=== PATIENT | female | born 1940 | race Caucasian/White ===

== ENCOUNTER 2018-03-19 09:34 | Emergency (ER) | payer MEDICARE, OTHER ==
[2018-03-19 10:11] VITALS: BP 98/67
--- NOTE | 2018-03-19 10:14 | UC ---
Respiratory Complaint HPI - HPI Summary HPI Summary: Patient is a 77 year old woman , who present today to the urgent care with coughing, chest congestion for past 1 week. Her has similar symptoms for past 2 weeks. She reports productive cough and noticed one episode of a streaky blood on the sputum. Denies any fever, chills, chest pain or shortness of breath . Denies any abdominal pain , nausea or vomiting , diarrhea or constipation. Patient tried over the counter Robitussin DM without much relief. - History of Current Complaint Chief Complaint: UCRespiratory Stated Complaint: CONGESTION COUGH Time Seen by Provider: 03/19/18 10:00 Hx Obtained From: Patient Pain Intensity: 0 - Allergies/Home Medications Allergies/Adverse Reactions: Allergies Allergy/AdvReac Type Severity Reaction Status Date / Time ibuprofen Allergy Rash Verified 03/19/18 10:12 Penicillins Allergy Rash Verified 03/19/18 10:12 Home Medications: Home Medications L.acidoph,Paracasei, B.lactis [Probiotic] 1 each PO DAILY 03/19/18 [History Confirmed 03/19/18] Pantoprazole TAB (NF) [Protonix TAB (NF)] 20 mg PO DAILY 03/19/18 [History Confirmed 03/19/18] PMH/Surg Hx/FS Hx/Imm Hx - Additional Past Medical History Additional PMH: Hypertension Asthma GERD Hyperlipidemia Anxiety and depression Previously Healthy: Yes - Surgical History Surgical History: Yes Surgery Procedure, Year, and Place: bone spurs. kidney stones. leg vein stripped. tonsillectomy - Social History Alcohol Use: None Substance Use Type: None Smoking Status (MU): Never Smoked Tobacco Review of Systems All Other Systems Reviewed And Are Negative: Yes Constitutional: Positive: Negative Skin: Positive: Negative Eyes: Positive: Negative ENT: Positive: Other - Chest congestion Respiratory: Positive: Cough - Productive Cardiovascular: Positive: Negative Gastrointestinal: Positive: Negative Genitourinary: Positive: Negative Motor: Positive: Negative Neurovascular: Positive: Negative Musculoskeletal: Positive: Negative Neurological: Positive: Negative Psychological: Positive: Negative Is Patient Immunocompromised?: No Physical Exam - Summary Physical Exam Summary: Physical Exam: Const: Appears well. No signs of apparent distress present. Alert and oriented x 3. Musculo: Walks with a normal gait. Head/Face: Atraumatic, normocephalic on inspection. Eyes: EOMI and PERRLA in both eyes. Conjunctivae clear. No discharge noted ENT: Hearing normal, TM normal appearing bilaterally seen partially as she has cerumen bilaterally No pharyngeal erythema or exudates No lymphadenopathy Respiratory: Respirations are unlabored. Decreased air entry is noted in right middle and upper lobe. no wheezing , rhonchi or rales noted . CVS: Regular rate and Rhythm, S1S2 normal , no murmurs identified. Extremities: Peripheral circulation is grossly normal. Pulses 2+ Abdomen : Soft non tender , nondistended , Bowel sounds present . No guarding , rebound tenderness or rigidity noted. Skin: No lesions or rash located on the upper extremities or on the lower extremities. Neuro: Cranial nerves II to XII intact, motor and sensory intact. DTR Intact bilaterally. Mood is normal. Affect is normal. Triage Information Reviewed: Yes Vital Signs: Initial Vital Signs Temp 98 F 03/19/18 10:07 Pulse 73 03/19/18 10:07 Resp 18 03/19/18 10:07 BP 98/67 03/19/18 10:07 Pulse Ox 97 03/19/18 10:07 Vital Signs Reviewed: Yes Diagnostic Evaluation - Laboratory O2 Sat by Pulse Oximetry: 97 - Radiology Radiology Interpretation Completed By: Radiologist - Chest Xray: Stigmata of obstructive lung disease. No acute pulmonary or cardiac process evident. Respiratory Course/Dx - Course Course Of Treatment: During the visit today, we obtained chest x-ray . Chest x-ray: Elevated lung volumes and mild prominence of interstitial markings without change.No focal pulmonary lesion, compelling alveolar consolidation, pleural effusion, pneumothorax. The heart, pulmonary vasculature, and mediastinal contours are unremarkable. Diffuse thoracic degenerative spondylosis. IMPRESSION:#. Stigmata of obstructive lung disease. No acute pulmonary or cardiac process evident. We discussed the findings and further plan. I will prescribe the medication to the pharmacy . Patient expressed understanding . - Differential Dx/Diagnosis Provider Diagnosis: Atypical pneumonia Discharge - Sign-Out/Discharge Documenting (check all that apply): Patient Departure All imaging exams completed and their final reports reviewed: Yes - Discharge Plan Condition: Stable Disposition: HOME Prescriptions: Azithromyxin SUGAR (NF) [Z-Sugar (Zithromax) 250 mg tabs #6] 2 tab PO .TODAY, THEN 1 DAILY #6 tab Patient Education Materials: Pneumonia (ED) Referrals: Lily Gustafson MD [Primary Care Provider] - 1 Week Additional Instructions: Please start taking the medication as prescribed to the pharmacy . Follow up with your primary care doctor in 1 week Return to Urgent care / ER if symptoms get worse. - Billing Disposition and Condition Condition: STABLE Disposition: Home
== END 2018-03-19 11:02 | disposition home or self-care (01) ==
LOC: UCCORT 09:34
DX: J18.9 Pneumonia, unspecified organism (principal); Z88.0 Allergy status to penicillin; Z88.3 Allergy status to other anti-infective agents
CPT/HCPCS: 71046; 99212; G0463

== ENCOUNTER 2018-09-10 09:28 | Emergency (ER) | payer MEDICARE, OTHER ==
--- NOTE | 2018-09-10 10:07 | UC ---
Respiratory Complaint HPI - HPI Summary HPI Summary: 77 y/o female presents to the urgent care c/o nasal congestion w/ clear nasal discharge, productive cough w/ clear phlegm for the past 3 days. She hasn't been able to sleep well due to cough. She feels severe B/L ear pressure. Her has similar symptoms, but his symptoms started first. Pt has Hx of seasonal allergies. She wants to make sure it is not bronchitis, since she was Dx w/ bronchitis in 03/2018. Pt denies fever, SOB, chest pain, dizziness, ANTONIO, wheezing, abdominal pain, N/V/d. - History of Current Complaint Stated Complaint: COUGH, CONGESTION Time Seen by Provider: 09/10/18 10:03 Hx Obtained From: Patient Onset/Duration: Gradual Onset, Lasting Days - 3 days, Still Present, Worse Since - yesterday unable to sleep due to cough Timing: Intermittent Episodes Severity Initially: Mild Severity Currently: Moderate Pain Intensity: 0 Pain Scale Used: 0-10 Numeric Character: Cough: Productive, Sputum Description: - clear Aggravating Factors: Recumbent Position, Other - B/L ear pressure Alleviating Factors: Nothing Associated Signs And Symptoms: Positive: URI, Nasal Congestion - w/ clear nasal discharge, Sinus Discomfort. Negative: Fever, Chills, Wheezing - Risk Factors Pulmonary Embolism Risk Factors: Negative Cardiac Risk Factors: Negative Pseudomonas Risk Factors: Negative Tuberculosis Risk Factors: Negative - Allergies/Home Medications Allergies/Adverse Reactions: Allergies Allergy/AdvReac Type Severity Reaction Status Date / Time ibuprofen Allergy Rash Verified 09/10/18 10:01 Penicillins Allergy Rash Verified 09/10/18 10:01 PMH/Surg Hx/FS Hx/Imm Hx Previously Healthy: Yes Cardiovascular History: Hypertension - Diet controlled Respiratory History: Asthma GI/ History: Gastroesophageal Reflux - Surgical History Surgical History: Yes Surgery Procedure, Year, and Place: bone spurs. kidney stones. leg vein stripped. tonsillectomy - Family History Known Family History: Positive: Diabetes - Social History Occupation: Retired Lives: With Family Alcohol Use: None Substance Use Type: None Smoking Status (MU): Never Smoked Tobacco Review of Systems All Other Systems Reviewed And Are Negative: Yes Constitutional: Positive: Negative Skin: Positive: Negative Eyes: Positive: Negative ENT: Positive: Nasal Discharge - clear, Sinus Congestion, Sinus Pain/Tenderness , Other - PND Respiratory: Positive: Cough - productive w/ clear phlegm Cardiovascular: Positive: Negative Gastrointestinal: Positive: Negative Genitourinary: Positive: Negative Motor: Positive: Negative Neurovascular: Positive: Negative Musculoskeletal: Positive: Negative Neurological: Positive: Negative Psychological: Positive: Negative Is Patient Immunocompromised?: No Physical Exam - Summary Physical Exam Summary: Vital Signs Reviewed: Yes General: well developed, well nourished female sitting in the examining table w/ o any apparent distress Eyes: Positive: Conjunctiva Clear - PERRLA, EOMI, fundi grossly normal ENT: Positive: Normal ENT inspection, Hearing grossly normal, B/L external ear canals impacted w/ cerumen unable to visualize TM's. Pharynx normal, Nasal congestion - edematous and erythematous nasal mucosa, Nasal drainage - clear drainage, Negative: Tonsillar swelling, Tonsillar exudate Neck: Positive: Supple, Nontender, No Lymphadenopathy Respiratory: no orthopnea or dyspnea. Able to speak in full sentences, no retractions or accessory muscle use, no tripod position, stridor, or head bobbing. Positive breath sounds bilaterally. No wheezes, no rhonchi, no crackles or rales. Cardiovascular: Positive: RRR, No Murmur, Pulses Normal, Brisk Capillary Refill Abdomen Description: Positive: Nontender, No Organomegaly, Soft. Negative: CVA Tenderness (R), CVA Tenderness (L) Bowel Sounds: Positive: Present Musculoskeletal Exam: Normal Musculoskeletal: Positive: Strength Intact, ROM Intact, No Edema Neurological Exam: Normal Psychological Exam: Normal Skin Exam: Normal Triage Information Reviewed: Yes Respiratory Course/Dx - Course Course Of Treatment: 77 y/o female presents to the urgent care c/o nasal congestion w/ clear nasal discharge, productive cough w/ clear phlegm for the past 3 days. She hasn't been able to sleep well due to cough. She feels severe B/L ear pressure.Her has similar symptoms, but his symptoms started first. Pt has Hx of seasonal allergies. She wants to make sure it is not bronchitis, since she was Dx w/ bronchitis in 03/2018. Pt denies fever, SOB, chest pain, dizziness, ANTONIO, wheezing, abdominal pain, N/V/d. Hx obtained. Pt with allergic sinusitis and B/ L cerumen impaction on examination. B/L ear irrigation ordered and performed by nurse w/o any success, I removed most of the cerumen w/ a ear curette, however there is still some present. Pt Rx Debros otic drops and Rx Claritin PO, advised to continue using the Flonase nasal spray, increase fluid intake, rest and eat well. Take Tylenol PO for sinus pain or headache. Advised to use her albuterol inhaler to alleviate cough too. Pt explained D/C instructions. Pt understood and agreed with plan of care. - Differential Dx/Diagnosis Differential Diagnosis/HQI/PQRI: Asthma, Bronchitis, Influenza, Laryngitis, Lower Resp Infection, Sinusitis Provider Diagnosis: Allergic rhinitis, Bilateral impacted cerumen, Cough Discharge - Sign-Out/Discharge Documenting (check all that apply): Patient Departure - D/c home All imaging exams completed and their final reports reviewed: No Studies - Discharge Plan Condition: Stable Disposition: HOME Prescriptions: Benzonatate CAP* [Tessalon 100 MG CAP*] 100 mg PO TID PRN #21 cap PRN Reason: Cough Carbamide Peroxide 6.5% OTIC* [DEBROX 6.5% Otic*] 5 drop BOTH EARS BID #1 bottle Fluticasone NASAL SPRAY 50MCG* [Flonase NASAL SPRAY 50MCG*] 2 spray BOTH NARES DAILY #1 btl Patient Education Materials: Cerumen Impaction (ED), Rhinosinusitis (ED) Referrals: Lily Gustafson MD [Primary Care Provider] - 3 Days Additional Instructions: 1- Please increase fluid intake and rest. Take Tessalon tabs to alleviate cough and use your Albuterol inhaler at night to alleviate Bronchospasm. 2-Use Flonase Nasal spray as directed to help drain fluid. Also buy saline drops to clear sinuses as directed 3-Continue takin Claritin PO to alleviates sinus congestion. 4- Apply Debrox otic drops as directed to alleviate to soften cerumen. 4- Please f/u w/ your PCP in 3-4 days if symptoms do not improve for further management and treatment - Billing Disposition and Condition Condition: STABLE Disposition: Home - Attestation Statements Provider Attestation: Per institutional requirements, I have reviewed the chart, however, I was not consulted specifically or made aware of this patient by the midlevel provider. I did not personally evaluate, interact with , or disposition this patient.
[2018-09-10 10:08] VITALS: BP 96/83
== END 2018-09-10 11:25 | disposition home or self-care (01) ==
LOC: UCCORT 09:28
DX: J30.9 Allergic rhinitis, unspecified (principal); H61.23 Impacted cerumen, bilateral; R05 Cough; I10 Essential (primary) hypertension; K21.9 Gastro-esophageal reflux disease without esophagitis; Z88.0 Allergy status to penicillin; Z88.8 Allergy status to other drugs, medicaments and biological substances
CPT/HCPCS: 99212; G0463